=== PATIENT | female | born 1985 | race Caucasian/White ===

== ENCOUNTER 2019-08-25 16:55 | Emergency (ER) | payer SELFPAY ==
[2019-08-25] MEDS ORDERED: Hydromorphone 1 mg/ml Ampule ONE ×2 (17:08→17:15)
[2019-08-25] MEDS ORDERED: Sodium Chloride 0.9% 1000 ML 1,000 ML ONE (17:10)
[2019-08-25] MEDS ORDERED: Zofran 4 MG/2 ML VIAL ONE (17:10)
[2019-08-25] MEDS ORDERED: DILAUDID 2 MG INJECTION IV ONE (17:23)
[2019-08-25] MEDS ORDERED: DIPRIVAN 200 MG/20 ML IV ONE (17:30)
--- NOTE | 2019-08-25 17:48 | ERPHSYRPT ---
- History of Present Illness Time Seen by Provider: 08/25/19 17:20 Source: patient, family Exam Limitations: no limitations Physician History: 34 years old fairly healthy female presented in the ER with chief complaint of fall with right ankle deformity. Patient reports she was coming downhill, tripped and twisted her right ankle with deformity and could not put any weight. She is complaining of severe sharp shooting pain in the right ankle which is aggravated with minimal movements or palpation or movements of toes. Partial relief with being still. Able to wiggle her toes. No injury anywhere else. No skin break and up-to-date with immunizations. Method of Injury: fell, twisted Occurred: just prior to arrival Quality: constant Severity of Pain-Max: severe Severity of Pain-Current: severe Lower Extremities Pain: ankle: right Modifying Factors: Improves With: immobilization, movement Associated Symptoms: unable to bear weight, snapping sensation, popping sensation Allergies/Adverse Reactions: No Known Drug Allergies Allergy (Unverified 08/25/19 17:07) Home Medications: No Reportable Medications [No Reported Medications] 08/25/19 [History] - Review of Systems Constitutional: No Symptoms Eyes: No Symptoms Ears, Nose, & Throat: No Symptoms Respiratory: No Symptoms Cardiac: No Symptoms Abdominal/Gastrointestinal: No Symptoms Genitourinary Symptoms: No Symptoms Musculoskeletal: Deformity, Fall, Injury, Joint Pain, Joint Swelling Skin: No Symptoms Neurological: No Symptoms Psychological: No Symptoms Endocrine: No Symptoms Hematologic/Lymphatic: No Symptoms Immunological/Allergic: No Symptoms - Female History Hx Now: No (N) - Nursing Vital Signs Nursing Vital Signs: Initial Vital Signs Pulse Rate 89 08/25/19 17:08 Respiratory Rate 18 08/25/19 17:08 Blood Pressure 107/79 08/25/19 17:08 O2 Sat by Pulse Oximetry 95 08/25/19 17:08 Pain Scale Pain Intensity 0 - Physical Exam General Appearance: no apparent distress, alert Eyes, Ears, Nose, Throat Exam: normal ENT inspection, TMs normal, pharynx normal Neck Exam: normal inspection, non-tender, supple, full range of motion Cardiovascular/Respiratory Exam: chest non-tender, normal breath sounds Gastrointestinal/Abdominal Exam: non-tender, soft Back Exam: normal inspection, normal range of motion, No CVA tenderness Hips Exam: bilateral: non-tender, normal inspection, normal range of motion Legs Exam: bilateral leg: non-tender, normal inspection, normal range of motion Knees Exam: bilateral knee: non-tender, normal inspection, normal range of motion, no evidence of injury Ankle Exam: right ankle: bone tenderness, deformity, limited range of motion, pain, soft tissue tenderness, swelling, left ankle: non-tender, normal inspection, normal range of motion, no evidence of injury Foot Exam: right foot: bone tenderness, limited range of motion, left foot: non- tender, normal inspection, normal range of motion, no evidence of injury Neuro/Tendon Exam: normal sensation, normal motor functions Mental Status Exam: alert, oriented x 3, cooperative Skin Exam: normal color, warm SpO2 Interpretation: normal O2 Delivery: Room Air Procedures - Splinting Location of Splint: Right, Ankle Type of Splint: Other (Sugar tong) Splint Applied By: ED Physician Pre-Proc Neuro Vasc Exam: abnormal Post-Proc Neuro Vasc Exam: neurovascular intact, good alignment, changed from pre-exam - Joint Reduction Timeout: Performed Joint Reduction Site: Right, ankle Conscious Sedation: Yes Reduction Attempts: 1 Pre-Procedure Neurovascular Exam: decreased pulse Post Procedure Neurovascular Exam: neurovascular intact, good alignment, changed from pre-exam Post Joint Reduction Film: fracture seen Progress: "Palpable dorsalis pedis after reduction. - Procedural Sedation Indication: fracture reduction, joint reduction Preparation: consent signed, capnographry, iv access, previous anesthia/sedation without complications, constant attendance, threat monitoring analyst, oxygen, procedure explained, pulse oximeter, suction Sedation Parenteral: Propofol (Diprovan), Ketamine Response during procedure: moderate sedation Post-Procedure Response: return to baseline mental status Progress: Start 1729. End time 173 - Course Nursing assessment & vital signs reviewed: Yes Ordered Tests: Active Orders 24 hr Category Date Time Status CO2 Monitoring STAT Care 08/25/19 17:46 Completed ANKLE (2V) Routine Exams 08/25/19 17:48 Completed ANKLE (3 VIEWS) Routine Exams 08/25/19 17:48 Completed Standby STAT RT 08/25/19 17:46 Completed Medication Summary Discontinued Medications Generic Name Dose Route Start Last Admin Trade Name Freq PRN Reason Stop Dose Admin Hydromorphone HCl Confirm 08/25/19 17:08 Hydromorphone 1 Mg/Ml Ampule Administered 08/25/19 17:09 Dose 1 mg .ROUTE .STK-MED ONE Hydromorphone HCl Confirm 08/25/19 17:15 Hydromorphone 1 Mg/Ml Ampule Administered 08/25/19 17:16 Dose 1 mg .ROUTE .STK-MED ONE Hydromorphone HCl 2 mg 08/25/19 17:23 08/25/19 18:12 Dilaudid 2 Mg Injection IV 08/25/19 17:24 2 mg ONCE ONE Administration Sodium Chloride Confirm 08/25/19 17:10 Sodium Chloride 0.9% 1000 Ml Administered 08/25/19 17:11 Dose 1,000 mls @ ud .ROUTE .STK-MED ONE Sodium Chloride 1,000 mls @ 999 mls/hr 08/25/19 18:10 08/25/19 18:13 Sodium Chloride 0.9% 1000 Ml IV 08/25/19 19:10 999 mls/hr .Q1H1M STA Administration Ketamine HCl 40 mg 08/25/19 18:04 08/25/19 18:11 Ketamine Hcl 50 Mg/Ml IV 08/25/19 18:05 40 mg STAT ONE Administration Ondansetron HCl Confirm 08/25/19 17:10 Zofran 4 Mg/2 Ml Vial Administered 08/25/19 17:11 Dose 4 mg .ROUTE .STK-MED ONE Ondansetron HCl 4 mg 08/25/19 18:10 08/25/19 18:13 Zofran 4 Mg/2 Ml Vial IV 08/25/19 18:11 4 mg STAT ONE Administration Propofol 40 mg 08/25/19 17:30 08/25/19 18:12 Diprivan 200 Mg/20 Ml IV 08/25/19 17:31 40 mg STAT ONE Administration - Progress Progress: improved, pain not gone completely, re-examined Progress Note: 08/25/19 17:54 34 years old is evaluated for fall with right ankle deformity. Nonpalpable pulse initially but good capillary refill. She is given IV pain medication and x-rays showed trimalleolar fracture with dislocation. After informed/signed consent for conscious sedation fracture reduction and splint application is done. Pulse was palpable after reduction. Postreduction x-rays showed improvement. I have discussed with trauma surgeon at [facility] at and patient is accepted for transfer. Discussed with DrAmanda: Other ( trauma surgeon [facility]) Will see patient in: ED - Departure Departure Disposition: Transfer Clinical Impression: Fracture dislocation of right ankle joint Qualifiers: Encounter type: initial encounter Fracture type: closed Qualified Code(s): S82.891A - Other fracture of right lower leg, initial encounter for closed fracture Condition: Stable Critical Care Time: Yes Critical Care Time(excluding separately billable procedures): Critical 30-74 mins Referrals: DOCTOR,NO FAMILY [Primary Care Provider] -
[2019-08-25 17:50] VITALS: BP 107/79; PULSE 89; O2SAT 95
[2019-08-25] MEDS ORDERED: Ketamine HCl 50 MG/ML IV ONE (18:04)
[2019-08-25] MEDS ORDERED: Zofran 4 MG/2 ML VIAL IV ONE (18:10)
[2019-08-25] MEDS ORDERED: Sodium Chloride 0.9% 1000 ML 1,000 ML IV STA (18:10)
--- NOTE | 2019-08-25 21:22 | XRAY ---
Indication: Post reduction. Comparison: Taken earlier in the day AP/lateral right ankle demonstrates new splint material with reduction of previous talus dislocation now improved with mild lateral subluxation. Continued displaced trimalleolar fracture and soft tissue swelling.
--- NOTE | 2019-08-25 21:23 | XRAY ---
Indication: Pain following fall. Comparison: None 3 view right ankle demonstrates displaced trimalleolar fracture with lateral talus dislocation and soft tissue swelling. No other bony, articular, or soft tissue abnormalities.
== END 2019-08-25 18:25 | disposition short-term general hospital (02) ==
LOC: ED 16:55
DX: S82.891A Other fracture of right lower leg, initial encounter for closed fracture (principal); X50.1XXA Overexertion from prolonged static or awkward postures, initial encounter; Y93.01 Activity, walking, marching and hiking; Y92.89 Other specified places as the place of occurrence of the external cause
CPT/HCPCS: 73600; 73610; 94799; 96374; 96375; 99285; 99291; J1170; J2405; J2704